=== PATIENT | female | born 2000 | race Caucasian/White ===

== ENCOUNTER 2021-09-17 16:41 | Observation (INO) | payer OTHER ==
[~2021-09-17] VITALS: Ht 170.2 cm; Wt 84.4 kg
[2021-09-17] MEDS ORDERED: PNV91TAB8 PO (17:06)
[2021-09-17] MEDS ORDERED: TERBUTALINE 1 MG/ML VIAL SUBQ SCH (17:10)
[2021-09-17] MEDS ORDERED: BETAMETH ACET/BETAMETH NA PH 30 MG/5 ML VIAL IM SCH (17:10)
[2021-09-17] MEDS ORDERED: LACTATED RINGERS 1,000 ML IV SCH (17:25)
[2021-09-17] MEDS ORDERED: BETAMETH ACET/BETAMETH NA PH 30 MG/5 ML VIAL IM ONE (17:26)
[2021-09-17] MEDS ORDERED: TERBUTALINE 1 MG/ML VIAL SUBQ ONE (17:26)
[2021-09-17 18:31] VITALS: BP 109/65
== END 2021-09-17 20:10 | disposition home or self-care (01) ==
LOC: MFCC 16:41
PROVIDERS: ADMIT Obstetrics & Gynecology; ATTEND Obstetrics & Gynecology
DX: O60.03 Preterm labor without delivery, third trimester (principal); Z3A.35 35 weeks gestation of pregnancy
CPT/HCPCS: 59025; 81000; 96360; 96361; 96372; G0378; J0702; J3105; J7120

== ENCOUNTER 2021-09-18 15:41 | Observation (INO) | payer OTHER ==
[~2021-09-18] VITALS: Ht 170.2 cm; Wt 87.1 kg
[~2021-09-18 15:41] MED LIST: PNV91TAB8 PO
[2021-09-18] MEDS ORDERED: BETAMETH ACET/BETAMETH NA PH 30 MG/5 ML VIAL IM SCH (16:00)
[2021-09-18 16:49] VITALS: BP 98/52
== END 2021-09-18 16:35 | disposition home or self-care (01) ==
LOC: MLD 15:41
PROVIDERS: ADMIT Obstetrics & Gynecology; ATTEND Obstetrics & Gynecology
DX: O60.03 Preterm labor without delivery, third trimester (principal); Z3A.35 35 weeks gestation of pregnancy
CPT/HCPCS: 59025; 96372; G0378; G0379; J0702